=== PATIENT | female | born 1980 | race Caucasian/White ===

== ENCOUNTER 2018-06-29 09:55 | Outpatient (REF) | payer BC, SELFPAY ==
[2018-06-29 19:45] LABS: Uric Acid 4.2 mg/dL (2.6-6.0)
== END 2018-06-29 10:15 ==
LOC: NCHCN 09:55
PROVIDERS: PCP Internal Medicine; Visit Provider Nurse Practitioner Family
DX: Z13.89 Encounter for screening for other disorder (principal)
CPT/HCPCS: 84550

== ENCOUNTER 2018-08-28 09:57 | Outpatient (CLI) | payer BC, SELFPAY | END 2018-08-28 10:17 | PROVIDERS: PCP Internal Medicine; Visit Provider Dermatology | DX: L40.9 Psoriasis, unspecified (principal) | CPT/HCPCS: 99211 ==

== ENCOUNTER 2018-08-30 00:53 | Outpatient (CLI) | payer BC, SELFPAY | END 2018-08-30 01:13 | PROVIDERS: PCP Internal Medicine; Visit Provider Dermatology | DX: L40.9 Psoriasis, unspecified (principal) | CPT/HCPCS: 96910 ==

== ENCOUNTER 2018-09-01 01:29 | Outpatient (CLI) | payer BC, SELFPAY | END 2018-09-01 01:49 | PROVIDERS: PCP Internal Medicine; Visit Provider Dermatology | DX: L40.9 Psoriasis, unspecified (principal) | CPT/HCPCS: 96910 ==

== ENCOUNTER 2018-09-04 01:56 | Outpatient (CLI) | payer BC, SELFPAY | END 2018-09-04 02:16 | PROVIDERS: PCP Internal Medicine; Visit Provider Dermatology | DX: L40.9 Psoriasis, unspecified (principal) | CPT/HCPCS: 96910 ==

== ENCOUNTER 2019-02-09 19:41 | Outpatient (REF) | payer BC, SELFPAY ==
[2019-02-09 19:35] LABS: HCT 42.4 % (36.0-46.0); HGB 14.8 g/dL (12.0-15.5); Mean Corp. HGB Concentration 34.9 g/dL (32.0-36.0); Mean Corpuscular Volume 94.6 fL (80-95); Mean Platelet Volume 9.8 fL (8.0-11.0); Platelet Count 289 x1000/uL (130-400); RBC 4.48 m/cumm (4.00-5.20); RBC Distribution Width 11.9 % (11.7-14.6); White Blood Cell Count 5.28 k/cumm (4.4-10.8)
[2019-02-09 19:47] LABS: Mono Screening Negative (Negative)
== END 2019-02-09 20:01 ==
LOC: NCHCN 19:41
PROVIDERS: PCP Internal Medicine; Visit Provider Nurse Practitioner Family
DX: J02.9 Acute pharyngitis, unspecified (principal)
CPT/HCPCS: 85027; 86308

== ENCOUNTER 2019-11-09 19:21 | Outpatient (REF) | payer BC, SELFPAY | END 2019-11-09 19:41 | LOC: NCHCN 19:21 | PROVIDERS: PCP Internal Medicine; Visit Provider Physician Assistant | DX: N39.0 Urinary tract infection, site not specified (principal); R35.0 Frequency of micturition | CPT/HCPCS: 87077; 87086; 87186 ==

== ENCOUNTER 2020-09-24 09:09 | Outpatient (REF) | payer BC, SELFPAY ==
[2020-09-24 16:34] LABS: Calculated LDL 101 mg/dL (<100); Cholesterol 181 mg/dL (<200); Glucose 107 mg/dL (74-106); HDL Cholesterol 47 mg/dL (40-60); Triglyceride 167 mg/dL (<150)
== END 2020-09-24 09:10 | disposition home or self-care (01) ==
LOC: NCHCN 09:09
PROVIDERS: PCP Internal Medicine; Visit Provider Nurse Practitioner Family
DX: Z13.220 Encounter for screening for lipoid disorders (principal); Z13.1 Encounter for screening for diabetes mellitus
CPT/HCPCS: 80061; 82947

== ENCOUNTER 2020-10-15 14:42 | Outpatient (REF) | payer BC, SELFPAY ==
[2020-10-15 16:22] LABS: Bilirubin Negative (Negative); Blood Trace-intact (Negative); Clarity Clear (Clear); Glucose Negative (Negative); Ketones Negative (Negative); Leukocyte Esterase Large (Negative); Nitrite Negative (Negative); Specific Gravity 1.025 (1.005-1.025); Urobilinogen 0.2 EU/dL (Up TO 0.2); pH 5.5 (5-8)
[2020-10-15 16:45] LABS: Bacteria Many HPF (Negative); C & S Indicated? No/Sq. Contamination; Casts Negative LPF (Negative); Crystals Negative HPF (Negative); Epithelial Cells Many HPF (Negative); Mucus Negative (Negative); RBC Negative HPF (0-2); WBC 20-50 HPF (0-5)
== END 2020-10-15 14:43 | disposition home or self-care (01) ==
LOC: NCHCN 14:42
PROVIDERS: PCP Internal Medicine; Visit Provider Internal Medicine
DX: N30.00 Acute cystitis without hematuria (principal)
CPT/HCPCS: 81003; 81015

== ENCOUNTER 2020-10-22 08:55 | Outpatient (REF) | payer BC, SELFPAY ==
[2020-10-22 20:29] LABS: Bilirubin Negative (Negative); Blood Negative (Negative); Clarity Clear (Clear); Glucose Negative (Negative); Ketones Negative (Negative); Leukocyte Esterase Negative (Negative); Nitrite Negative (Negative); Urobilinogen 0.2 EU/dL (Up TO 0.2)
== END 2020-10-22 08:56 | disposition home or self-care (01) ==
LOC: NCHCN 08:55
PROVIDERS: PCP Internal Medicine; Visit Provider Physician Assistant
DX: N30.00 Acute cystitis without hematuria (principal)
CPT/HCPCS: 81003

== ENCOUNTER 2021-09-30 09:20 | Outpatient (REF) | payer BC, SELFPAY ==
[2021-09-30 20:04] LABS: Abs Immature Grans 0.07 10^3/uL (0.0-0.06); Absolute Basophil Count 0.07 10^3/uL (0.0-0.2); Absolute Eosinophil Count 0.34 10^3/uL (0.0-0.7); Absolute Lymphocyte Count 1.59 10^3/uL (1.2-3.4); Absolute Monocyte Count 0.57 10^3/uL (0.1-0.8); Absolute Neutrophil Count 4.09 10^3/uL (1.2-6.7); Eosinophils % 5.1; HCT 43.9 % (36.0-46.0); Lymphocytes % 23.6; MCH 32.3 pg (27.0-33.0); MCHC 34.2 % (32.0-36.0); MCV 94 fL (80-95); MPV 10.1 fL (8.0-11.0); Monocytes % 8.5; Neutrophils % 60.8; Platelet Count 292 10^3/uL (130-400); RBC 4.65 10^6/uL (3.93-5.22); RDW 11.9 % (11.7-14.6); RDW-SD 40.8 fL; WBC 6.73 10^3/uL (4.4-10.8)
[2021-09-30 20:16] LABS: ALT 30 U/L (14-59); AST 15 U/L (15-37); Albumin 3.8 g/dL (3.4-5.0); Alkaline Phosphatase 105 U/L (46-116); Anion Gap 10.8 mmol/L (3-11); BUN 12 mg/dL (7-18); Bilirubin, Total 0.3 mg/dL (0.2-1.0); CO2 23.2 mmol/L (21.0-32.0); CREATININE 0.8 mg/dL (0.55-1.02); Calcium 8.7 mg/dL (8.5-10.1); Chloride 105 mmol/L (98-107); Glucose 155 mg/dL (74-106); Potassium 4.3 mmol/L (3.5-5.1); Sodium 139 mmol/L (136-145); TSH (W/Ref FT4) 3.55 uIU/mL (0.36-3.74)
[2021-10-01 10:26] LABS: Hemoglobin A1C 5.3 % (<5.7)
== END 2021-09-30 09:21 | disposition home or self-care (01) ==
LOC: NCHCN 09:20
PROVIDERS: PCP Internal Medicine; Visit Provider Physician Assistant
DX: R73.9 Hyperglycemia, unspecified (principal); Z00.8 Encounter for other general examination; L40.50 Arthropathic psoriasis, unspecified
CPT/HCPCS: 80053; 83036; 84443; 85025

== ENCOUNTER 2022-11-24 13:47 | Outpatient (REF) | payer BC, SELFPAY ==
[2022-11-24 20:08] LABS: Abs Immature Grans 0.08 10^3/uL (0.0-0.06); Absolute Basophil Count 0.11 10^3/uL (0.0-0.2); Absolute Eosinophil Count 0.27 10^3/uL (0.0-0.7); Absolute Lymphocyte Count 1.64 10^3/uL (1.2-3.4); Absolute Monocyte Count 0.64 10^3/uL (0.1-0.8); Basophils % 1.6; Eosinophils % 3.9; HCT 44.4 % (36.0-46.0); HGB 15.6 g/dL (11.2-15.7); Immature Grans % 1.2; MCH 32.2 pg (27.0-33.0); MCHC 35.1 % (32.0-36.0); MCV 92 fL (80-95); MPV 9.5 fL (8.0-11.0); Monocytes % 9.4; Neutrophils % 59.9; Platelet Count 334 10^3/uL (130-400); RBC 4.85 10^6/uL (3.93-5.22); RDW 12.2 % (11.7-14.6); RDW-SD 41.1 fL; WBC 6.84 10^3/uL (4.4-10.8)
[2022-11-24 20:36] LABS: ALT 48 U/L (14-59); AST 31 U/L (15-37); Albumin 3.9 g/dL (3.4-5.0); Alkaline Phosphatase 116 U/L (46-116); Anion Gap 8.1 mmol/L (3-11); BUN 15 mg/dL (7-18); Bilirubin, Total 0.3 mg/dL (0.2-1.0); CO2 26.9 mmol/L (21.0-32.0); CREATININE 0.8 mg/dL (0.55-1.02); Calcium 9.5 mg/dL (8.5-10.1); Chloride 105 mmol/L (98-107); Glucose 104 mg/dL (74-106); Potassium 4.3 mmol/L (3.5-5.1); Sodium 140 mmol/L (136-145); Total Protein 7.5 g/dL (6.4-8.2)
== END 2022-11-24 13:48 | disposition home or self-care (01) ==
LOC: NCHCN 13:47
PROVIDERS: PCP Internal Medicine; Visit Provider Physician Assistant
DX: Z00.00 Encounter for general adult medical examination without abnormal findings (principal); L40.50 Arthropathic psoriasis, unspecified; N39.8 Other specified disorders of urinary system; N76.0 Acute vaginitis
CPT/HCPCS: 80053; 85025; 87480; 87510; 87660

== ENCOUNTER 2023-12-20 15:00 | Outpatient (REF) | payer BC, SELFPAY ==
--- NOTE | 2023-12-20 08:40 | PAPFT_PTH ---
PATIENT: Elen Acosta LOC: [facility]#:[id number] AGE/SX: 43/F ROOM: RE12/20/[address]: Melissa Francis : 1980 BED: DIS: 12/20/2023 SPEC #: [id number] RECD: 12/22/23 12:16 STATUS: LAKISHA NOLASCO #: [id number] KAMAR: 12/20/23 08:[address]: Melissa Francis DEPT: [facility] [place] Cytology RECD BY: Susana Good ENTERED: 12/22/23 12:17 SP TYPE: PAPFT OTHR DR: Kike Montes Tissues: 1 - CX/ENDOCX FOR PAP SMEARS Procedures: PAP THIN PREP/[facility] Screening HPV DNA PROBE Comments: [id number] (HPV 16 & 18/45)
[2023-12-20 20:57] LABS: Abs Immature Grans 0.05 10^3/uL (0.0-0.06); Absolute Basophil Count 0.07 10^3/uL (0.0-0.2); Absolute Eosinophil Count 0.27 10^3/uL (0.0-0.7); Absolute Monocyte Count 0.44 10^3/uL (0.1-0.8); Basophils % 1.3 %; Eosinophils % 5.1 %; HCT 41.1 % (36.0-46.0); HGB 14.3 g/dL (11.2-15.7); Immature Grans % 0.9 %; Lymphocytes % 26.3 %; MCH 32.5 pg (27.0-33.0); MCHC 34.8 % (32.0-36.0); MCV 93 fL (80-95); MPV 9.6 fL (8.0-11.0); Monocytes % 8.3 %; Neutrophils % 58.1 %; Platelet Count 325 10^3/uL (130-400); RDW 12.5 % (11.7-14.6); RDW-SD 42.8 fL; WBC 5.33 10^3/uL (4.4-10.8)
[2023-12-20 21:27] LABS: ALT 41 U/L (14-59); AST 22 U/L (15-37); Albumin 3.7 g/dL (3.4-5.0); Alkaline Phosphatase 103 U/L (46-116); Anion Gap 8.8 mmol/L (3-11); BUN 11 mg/dL (7-18); Bilirubin, Total 0.59 mg/dL (0.2-1.0); CO2 26.2 mmol/L (21.0-32.0); CREATININE 0.9 mg/dL (0.55-1.02); Calcium 8.8 mg/dL (8.5-10.1); Calculated LDL 106 mg/dL (<100); Chloride 105 mmol/L (98-107); Cholesterol 189 mg/dL (<200); Estimated GFR 80.84 (mL/min/1.73m2); Glucose 105 mg/dL (74-106); HDL Cholesterol 46 mg/dL (40-60); Potassium 4.1 mmol/L (3.5-5.1); Sodium 140 mmol/L (136-145); TSH (W/Ref FT4) 3.62 uIU/mL (0.36-3.74); Triglyceride 188 mg/dL (<150)
[2023-12-22 08:30] LABS: HIV-1/2 Ag & Ab Screen Negative (Negative)
[2023-12-22 08:52] LABS: Hepatitis C Ab w Rflx HCV PCR Negative (Negative)
[2023-12-22 12:16] LABS: Hemoglobin A1C 5.4 % (<5.7)
== END 2023-12-20 15:01 | disposition home or self-care (01) ==
LOC: NCHCN 15:00
PROVIDERS: PCP Internal Medicine; Visit Provider Physician Assistant
DX: L40.50 Arthropathic psoriasis, unspecified (principal); E66.8 Other obesity; Z68.36 Body mass index [BMI] 36.0-36.9, adult; Z13.220 Encounter for screening for lipoid disorders; Z13.29 Encounter for screening for other suspected endocrine disorder; Z13.1 Encounter for screening for diabetes mellitus; Z83.3 Family history of diabetes mellitus; Z11.59 Encounter for screening for other viral diseases; Z11.4 Encounter for screening for human immunodeficiency virus [HIV]; Z12.4 Encounter for screening for malignant neoplasm of cervix; Z11.51 Encounter for screening for human papillomavirus (HPV)
CPT/HCPCS: 80053; 80061; 86803; 87389; 88142; 83036; 84443; 85025; 87624